=== PATIENT | male | born 1940 | race Two or more races ===

== ENCOUNTER 2018-08-31 18:43 | Inpatient (IN) | payer OTHER | END 2018-09-15 15:20 | LOC: F2W 09-09 21:05 → F2N 09-07 15:32 → F2W 22:14 → F2N 09-02 15:00 ==

== ENCOUNTER → 2018-09-22 | Outpatient (CLI) | payer OTHER | LOC: FIMAGING 09:49 ==

== ENCOUNTER → 2018-09-29 | Outpatient (CLI) | payer OTHER | LOC: FIMAGING 13:49 ==